=== PATIENT | male | born 1955 ===

== ENCOUNTER 2024-12-22 14:35 | Outpatient (CLI) | payer MEDICARE, MEDICAID, SELFPAY ==
--- NOTE | 2024-12-22 10:45 | DI.RAD_ITS ---
Exam(s) XR PELVIS AP EXAM: XR PELVIS AP CLINICAL HISTORY: THR planning. TECHNIQUE: 2D digital imaging was performed. Single AP view. COMPARISON: CR XR HIP LT LAT 1VW W/PELVIS from 10/06/2024 FINDINGS: BONES: No acute fracture is present. No bony destructive lesion is seen. JOINTS: No dislocation present. Stable appearance left hip prosthesis. Abny-rw-lqmiohiu right hip j oint space narrowing. Spurring from the acetabulum as well as margin of the right femoral head. SOFT TISSUE: Normal. Template ball. IMPRESSION: Moderate degenerative changes of the right hip. DATA REPOSITORY: RADIATION DOSE DELIVERED:
== END 2024-12-22 14:36 | disposition home or self-care (01) ==
LOC: DIORS 14:35
PROVIDERS: PCP Family Medicine; Referring Provider Family Medicine; Visit Provider Student in an Organized Health Care Education/Training Program
DX: M16.11 Unilateral primary osteoarthritis, right hip (principal); I25.2 Old myocardial infarction; I63.9 Cerebral infarction, unspecified
CPT/HCPCS: 99203; 72170

== ENCOUNTER 2025-05-01 00:38 | Outpatient (CLI) | payer MEDICARE, MEDICAID, SELFPAY ==
[2025-05-01 11:46] LABS: HCT 43.5 % (40.0-50.0); HGB 14.5 g/dL (13.5-17.5); MCH 31.9 pg (27.0-33.0); MCHC 33.3 % (32.0-36.0); MCV 96 fL (80-95); MPV 10.4 fL (8.0-11.0); Platelet Count 182 10^3/uL (130-400); RBC 4.55 10^6/uL (4.36-5.78); RDW 13.1 % (11.8-14.1); RDW-SD 46.5 fL
[2025-05-01 12:39] LABS: Anion Gap 5.3 mmol/L (3-11); BUN 19 mg/dL (7-18); CO2 31.7 mmol/L (21.0-32.0); CREATININE 1.2 mg/dL (0.70-1.30); Calcium 8.5 mg/dL (8.5-10.1); Chloride 105 mmol/L (98-107); Estimated GFR 65.46 (mL/min/1.73m2); Glucose 89 mg/dL (74-106); Potassium 4.6 mmol/L (3.5-5.1); Sodium 142 mmol/L (136-145)
== END 2025-05-01 00:39 | disposition home or self-care (01) ==
LOC: LBO 00:38
PROVIDERS: PCP Family Medicine; Visit Provider Student in an Organized Health Care Education/Training Program
DX: M16.11 Unilateral primary osteoarthritis, right hip (principal); Z01.818 Encounter for other preprocedural examination
CPT/HCPCS: 36415; 80048; 85027

== ENCOUNTER 2025-05-10 05:53 | Day surgery (SDC) | payer MEDICARE, MEDICAID, SELFPAY ==
[2025-05-10] VITALS (34 sets, daily range): BP systolic 111–169; BP diastolic 60–111; PULSE 50–95; RESP 9–24; TEMP 36.1–36.5; O2SAT 93–99; BMI 25.0
--- NOTE | 2025-05-10 06:46 | W.ANESPRE ---
General Info Date of Service Date Performed: 05/10/25 Height: 5 ft 11 in Weight: 81.193 kg Body Mass Index (BMI): 25.0 Surgical Procedure: Operation Date: 05/10/25 07:50 Proposed Procedure Side Surgeon p Hip Total Hip Anterior Right Bebeto Garza MD Meds Allergies and Home Medications Allergies Allergy/AdvReac Type Severity Reaction Status Date / Time Penicillins Allergy Anaphylaxis Verified 05/10/25 06:15 Home Medication ?Medication ?Instructions ?Recorded atorvastatin 80 mg tablet 80 mg PO HS 10/25/24 carvedilol 3.125 mg tablet 3.125 mg PO BID 10/25/24 lisinopril 10 mg tablet 10 mg PO DAILY 10/25/24 nitroglycerin 0.4 mg sublingual 0.4 mg sublingual Q5M PRN 10/25/24 tablet omeprazole 40 mg capsule,delayed 40 mg PO DAILY 10/25/24 release polyethylene glycol 3350 17 17 g PO DAILY 10/25/24 gram/dose oral powder (Miralax) trazodone 50 mg tablet 50 mg PO DAILY 10/25/24 acetaminophen 500 mg tablet 1,000 mg (2 x 500 mg) PO TID #90 05/10/25 tabs aspirin 81 mg tablet,delayed 81 mg PO BID #60 tabs 05/10/25 release dexamethasone 4 mg tablet 4 mg PO DAILY #2 tabs 05/10/25 docusate sodium 100 mg capsule 100 mg PO BID PRN #28 caps 05/10/25 meloxicam 15 mg tablet 15 mg PO DAILY #30 tabs 05/10/25 oxycodone 5 mg tablet 5 mg PO Q4H PRN pain #12 tabs 05/10/25 Current Visit Medications: Current Medications Generic Name Dose Route Start Last Admin Trade Name Freq PRN Reason Stop Dose Admin Acetaminophen 1,000 mg 05/10/25 06:00 Acetaminophen 500 Mg Tab PO 05/10/25 23:59 PREOP FRED Celecoxib 400 mg 05/10/25 06:00 Celecoxib 200 Mg Cap PO 05/10/25 23:59 PREOP FRED Ringer's Solution 1,000 mls @ 80 mls/hr 05/10/25 06:00 IV 05/10/25 23:59 INFUSION FRED Cefazolin Sodium/Dextrose 2 gm in 50 mls @ 100 mls/hr 05/10/25 06:00 Ancef Duplex IVPB 05/10/25 23:59 PREOP FRED Tranexamic Acid/Sodium Chloride 1,000 mg in 100 mls @ 600 mls/hr 05/10/25 06:00 IVPB 05/10/25 23:59 PREOP FRED IV Miscellaneous Supplies 1 each 05/10/25 06:00 Iv Access IV 05/10/25 23:59 DIRECTED FRED Sodium Chloride 0 ml 05/10/25 06:00 Normal Saline Flush 10 Ml Syr IV 05/10/25 23:59 PRN PRN Sodium Chloride 0 ml 05/10/25 06:00 Normal Saline 10 Ml Vial IJ 05/10/25 23:59 DIRECTED PRN Sterile Water 0 ml 05/10/25 06:00 Water,Injection,Sterile 10 Ml Vial IJ 05/10/25 23:59 DIRECTED PRN PFSH Active Problems Active Problems: Problem Status Onset Code Sleep apnea Acute G47.30 Carotid stenosis Acute I65.29 Osteoarthritis of right hip Chronic M16.11 Rosacea Acute L71.9 Recurrent major depression Acute F33.9 Restless leg syndrome Acute G25.81 Psoriasis Chronic L40.9 TOREY (obstructive sleep apnea) Chronic G47.33 Nicotine dependence Acute F17.200 Migraine with aura Acute G43.109 Hypertensive disorder Chronic I10 GERD (gastroesophageal reflux disease) Chronic K21.9 Fibromyalgia Acute M79.7 Deviated nasal septum Acute J34.2 CAD (coronary artery disease) Chronic I25.10 Chronic pain Chronic G89.29 CVA (cerebral vascular accident) Chronic I63.9 BPH (benign prostatic hyperplasia) Chronic N40.0 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 Medical History Medical History CVA (cerebral vascular accident) 11/07/23 History of trigger finger NSTEMI (non-ST elevated myocardial infarction) 02/06 stents Surgical History Surgical History Injury of right hand (~2023) Right little finger tendon injury 3 surgeries S/P lumbar fusion ~2000 [facility] Femoral hernia of right side S/P total left hip arthroplasty (10/04/19) H/O ventral hernia repair History of carpal tunnel release Bilateral continues to have numbness/tingling Tobacco Passive smoking exposure: No Alcohol Alcohol Intake: never Substance Use Substance use type: does not use Vital Signs and Lab Results Vital Signs Most Recent Vital Signs in EMR: Most Recent Vital Signs Temp Pulse Resp BP Pulse Ox 36.1 C L 63 16 125/86 98 05/10/25 06:05 05/10/25 06:05 05/10/25 06:05 05/10/25 06:05 05/10/25 06:05 Lab Results Complete Blood Count: WBC, (4.4-10.8) 7.00 10^3/uL 05/01/25, 11:39 RBC, (4.36-5.78) 4.55 10^6/uL 05/01/25, 11:39 Hgb, (13.5-17.5) 14.5 g/dL 05/01/25, 11:39 Hct, (40.0-50.0) 43.5 % 05/01/25, 11:39 Plt Count, (130-400) 182 10^3/uL 05/01/25, 11:39 Complete Metabolic Panel: Sodium, (136-145) 142 mmol/L 05/01/25, 11:39 Potassium, (3.5-5.1) 4.6 mmol/L 05/01/25, 11:39 Chloride, (98-107) 105 mmol/L 05/01/25, 11:39 Carbon Dioxide, (21.0-32.0) 31.7 mmol/L 05/01/25, 11:39 BUN, (7-18) 19 mg/dL H 05/01/25, 11:39 Creatinine, (0.70-1.30) 1.2 mg/dL 05/01/25, 11:39 Est GFR (CKD-EPI 2020), (mL/min/1.73m2) 65.46 05/01/25, 11:39 Calcium, (8.5-10.1) 8.5 mg/dL 05/01/25, 11:39 Glucose, (74-106) 89 mg/dL 05/01/25, 11:39 Anesthesia Assessment and Plan Anesthesia History Personal History: No History of Anesthesia Complications Family History: No Family History of Anesthesia Complications Exercise Tolerance Exercise Tolerance: Metabolic Equivalents<4 Pertinent Negatives Pertinent Negatives: No Symptoms of GERD and No Major Pulmonary Symptoms or Complaints Cardiac & Pulmonary Exam Cardiac Exam: Normal S1/S2 Heart Sounds Pulmonary Exam: Clear Bilateral Breath Sounds Implantable Cardiac Device Does patient have a Pacemaker or an ICD?: No Airway Exam Known Difficult Airway: No Mallampati Class: 2 Mouth Opening: Normal (> 3cm) Thyromental Distance: Greater than 3 cm Neck Range of Motion: Full ROM Neck Circumference: Normal Teeth Condition: Removable Dentures/Plates Upper and Removable Dentures/Plates Lower ASA Classification ASA Score: ASA 3 Emergency Case?: No NPO Status NPO Status: NPO Clears >2 hours, Solids >8 hours Anesthesia Plan Resuscitation Status: Full Code Anesthesia Technique: Spinal Anesthesia Airway Planned: Natural Airway Monitors Used: Standard Monitors
--- NOTE | 2025-05-10 07:12 | W.PM.DSUDISC ---
Date of service: 05/10/25 Discharge Plan Disposition Patient Disposition: Home Condition: Good Discharge Details Reason For Visit: R THR Attending Provider: Bebeto Garza Primary Care Provider: JANICE NICHOLSON Home Meds and New Rx's Prescriptions: New acetaminophen 500 mg tablet 1,000 mg PO TID Qty: 90 3RF aspirin 81 mg tablet,delayed release (DR/EC) 81 mg PO BID Qty: 60 0RF dexamethasone 4 mg tablet 4 mg PO DAILY Qty: 2 0RF docusate sodium 100 mg capsule 100 mg PO BID PRNQty: 28 0RF meloxicam 15 mg tablet 15 mg PO DAILY Qty: 30 2RF oxycodone 5 mg tablet 5 mg PO Q4H MDD 6 tabs PRN (Reason: pain) Qty: 12 0RF Continued atorvastatin 80 mg tablet 80 mg PO HS carvedilol 3.125 mg tablet 3.125 mg PO BID Rx Instructions: must administer with a meal/food lisinopril 10 mg tablet 10 mg PO DAILY polyethylene glycol 3350 [Miralax] 17 gram/dose powder 17 g PO DAILY nitroglycerin 0.4 mg tablet, sublingual 0.4 mg sublingual Q5M PRN Rx Instructions: do not exceed 3 doses per episode omeprazole 40 mg capsule,delayed release(DR/EC) 40 mg PO DAILY trazodone 50 mg tablet 50 mg PO DAILY Discontinued aspirin [Adult Low Dose Aspirin] 81 mg tablet,delayed release (DR/EC) 81 mg PO DAILY hydrocodone-acetaminophen 5-325 mg tablet 1 tab PO Q6H PRN acetaminophen 500 mg capsule 500 mg PO Q6H PRN Discharge Instructions Additional Instructions: Total Hip Discharge Instructions Activity: The most important activity is to walk. You should try to take short walks a few times a day. You have no restrictions on movement or positioning, but do not try to force what you do. You will find some stiffness and weakness with hip flexion (lifting your knee). Do not try to strengthen this too early, continue to practice walking and stairs and this will come. - Outpatient physical therapy can be helpful to help return you to a normal gait and improve your flexibility and strength. This can start around 2 weeks. For some patients, it?s not necessary. Usually this is determined at the time of discharge or at the first post-operative visit. - You should wear the PAMELA hose on both legs for 2 weeks. Dressing: Keep the surgical dressing in place for at least one week. After the first week it may be removed and replace with light gauze and tape or nothing. It may get wet after 3 days but avoid soaking the dressing. If it gets wet, just lightly pat dry. It is important to always keep some gauze between skin folds, especially when you are sitting. Spend some time with the wound exposed when you are lying flat as the incision does wrinkle onto itself. Medications: - You should take Tylenol and an anti-inflammatory meloxicam as your primary pain control medications. - You have been prescribed a stronger pain medication Oxycodone for breakthrough pain, take as needed as prescribed. - You will continue your stomach acid reduction agent omeprazole to help reduce stomach acid and reflux. - You have also been prescribed Decadron to help with post-operative nausea and pain. You will take this for two days starting tomorrow. - You will be taking Aspirin 81mg twice a day for DVT prevention unless instructed otherwise. - If you have constipation you should take Colace or Miralax (both lrou-qjr-cqzptey). It takes most people 3-4 days to have a bowel movement. Follow-up: 2 weeks If you have any acute concerns or questions, please do not hesitate to contact the office at [phone]. You may contact Dr. Garza with any questions after hours through the hospital at [phone] or on his cell phone at [phone]. Referrals: Bebeto Garza MD [ [facility] STAFF PHYSICIAN, Orthopaedic Surgical] Equipment/Supplies: Walker Activity:: Activity as Tolerated Shower/Bathe:: 72 hours Diet:: As Tolerated Discharge Orders Discharge Orders: Discharge Order (Routine); Ordered 05/10/25 Ordered By: Justin Carney DS: Diagnosis Discharge Diagnosis (1) Osteoarthritis of right hip: Status: Chronic
[2025-05-10] MEDS: Celecoxib 200 MG CAP 400 MG PO (07:19)
[2025-05-10] MEDS: Acetaminophen 500 MG TAB 1000 MG PO ×2 (07:21→13:09)
[2025-05-10] MEDS: Lactated Ringers 1,000 ML 80 ML IV (07:30)
--- NOTE | 2025-05-10 07:47 | W.PM.OP ---
Operative Note Operative Note PRE-OP DIAGNOSIS: Right Hip Osteoarthritis POST-OP DIAGNOSIS: same PROCEDURE: Right Anterior Total Hip Arthroplasty with Intraoperative Navigation SURGEON: Bebeto Garza HEALTH CARE MARKETING MANAGER: Justin Carney ANESTHESIA TYPE: Spinal Refer to Anesthesia Record ESTIMATED BLOOD LOSS: 150 PATHOLOGY: none sent TOURNIQUET TIME: 0 COMPLICATIONS: None Patient was transported to: PACU Patient's condition: stable Implants: 1. Depuy [place] Acetabular Component, 60mm 2. Depuy Acetabular Liner, [id number] 3. Depuy Actis High Offset Collared Femoral Stem, Size 8 4. Depuy Altrx Ceramic Femoral Head, Size 36+1.5mm Indications: I have seen Last in clinic for symptoms of hip arthritis, confirmed with radiographic findings. He has exhausted nonoperative methods and was having significant limitations in daily function and desired better function and less pain. I discussed the technical details of a hip replacement. I explained the risks of the procedure to include, but not limited to, bleeding, infection, pain, stiffness, fracture, damage to nerves and vessels, damage to muscles and tendons, loosening, instability, leg length inequality, need for repeat procedure, blood clot and cardiopulmonary demise. Despite these risks, Last elected to proceed. Findings: There was significant signs of arthritis throughout the hip. Procedure Description: Last was greeted in the preoperative holding area where the correct side was identified and marked. The consent was reviewed with the patient and signed. The history and physical was updated. All questions were answered. He was taken back to the operating room. A spinal anesthestic was then attempted but unsuccessful and thus he was converted to a general anesthetic. The feet were wrapped with cast padding and Coban and then placed into the boot liners and then into the boots. Care was taken to protect the skin and make sure the heels were fully down and the boots were stable. The patient was then positioned onto the HANA table. Both legs were held in a neutral position. SCDs were applied. The patient was then slid down onto a peroneal post. Prophylactic antibiotics in the form of Cefazolin were administered. 1g of Tranxemic Acid was given intravenously within 30 minutes of incision. The right leg was then prepped with Chloraprep and draped in a standard fashion. A second prep with Chloraprep was performed prior to placement of a shower-curtain type drape with Iodine impregnated skin protection. A timeout to confirm correct identity, side and site, procedure, allergies, anesthesia, and medical concerns was performed. An obliquely oriented incision was made starting lateral to the ASIS and running distal over the Tensor Fascia Nely (TFL) muscle belly toward the fibular head, approximately 10cm. The skin and soft tissue was dissected sharply, through Debbie?s fascia, and to the fascia of the TFL. With the fascia and superior border of the IT band identified, the fascia was incised with a new knife just above any perforators from the IT band. The TFL muscle belly was bluntly dissected away from the fascia and moved laterally. The fat between TFL and rectus was identified to ensure the dissection was not within the TFL. Blunt dissection created space between abductors and the capsule and retractor was placed over the lateral femoral neck. The fibers of the rectus femoris tendon were identified and these were freed from the anterior capsule. A second cobra retractor was placed around the medial femoral neck. The TFL was further retracted laterally to show the deep fascia. Careful dissection through this layer identified three main crossing vessels of the lateral femoral circumflex. These were cauterized in multiple locations and then cut without any noticeable bleeding. The TFL was further released bluntly from the deep fascia to expose anterior hip capsule and fat The soft tissue orthopaedic retractor was then placed beneath the TFL and against sartorius and medial soft tissues to protect and retract the soft tissues. A T-capsulotomy was then performed starting at the superior lateral acetabulum and moving distally to the intertrochanteric ridge. These capsular flaps were tagged with a No. 1 Vicryl and elevated from within. The capsular flaps were released to the shoulder of the lateral neck and to the lesser trochanter to give excellent visualization of the proximal femur. A neck osteotomy was performed using an oscillating saw based on preoperative templates. This cut started in the shoulder and of the lateral neck and exited medially. The saw was at all times directed medially to avoid injury to the greater trochanter. Gross traction was applied to the leg and the osteotomy opened. The femoral head was removed with a corkscrew, making sure to protect the TFL on its exit. Traction was released after head removal. This was measured on the back table to determine the starting reamer size. Portions of the rectus obscuring visualization were minimally elevated off the superior acetabulum. An anterior retractor was placed over the anterior wall between capsule and labrum and attached to the Gripper retraction system. The femur was rotated to 90 degrees and medial capsule was fully released until the lesser trochanter was palpable and visible; the femur was returned to 30 degrees. A posterior retractor was placed similarly between capsule and labrum. This provided excellent visualization. The contents of the cotyloid fossa were removed with electrocautery and the labrum was removed with a knife. There was a notable floor osteophyte. There was significant chondromalacia of the superior acetabulum. Acetabular reaming began with a 55mm reamer. This first reaming was directed anterior to posterior and medial to get down to the true floor. This was inspected and reamed until the true floor was reached. The anterior retractor was then released and entry and exit was provided by traction on the capsular flaps. I then reamed sequentially up to a 60mm reamer where good fit was obtained. The larger reamers were oriented based on anatomical reference of the anterior and lateral hill to ensure proper abduction and anteversion. Positioning and size was confirmed with the fluoroscopy. A 60mm Depuy [place] acetabular component was selected. The acetabulum was reamed around the periphery with the selected acetabular size to prevent a rim fit. The deep tissues were irrigated. The acetabular component was then impacted in a position of about 40-45 degrees of abduction and 15-20 degrees of anteversion, using the patient?s anatomy as the ultimate landmark. Fluoroscopy was used to confirm this. There was excellent linux devops engineer of the acetabular component and the inserting handle was removed. The acetabular liner, Depuy [id number] polyethylene liner, was inserted and lined up with the tines of the acetabular component. There was no soft tissue interposition. The liner was then impacted into position and confirmed to be well-seated. A portion of the sri-articular cocktail was then injected around the acetabulum into the capsule and periosteum. This cocktail consisted of 123mg of Ropivacaine, 0.25mg of Epinephrine, 0.04mg of Clonidine, and 15mg of Ketorolac, diluted to 50cc. The leg was rotated to 120 degrees. Any remaining medial capsule was released until the lesser trochanter was easily palpable. A retractor was placed medially. The lateral capsule was further released into the shoulder to allow access to the greater trochanter. A Escobar retractor was placed over the greater trochanter which allowed the trochanter to flip in front of the capsule for excellent exposure. The leg was brought down into maximal extension and 20 degrees of adduction while ensuring there was no impingement on the acetabulum. Any remnant capsule within the trochanter was released. Piriformis and obturator externis were identified and protected. There was excellent access to the proximal femur. The lateral neck remnant was removed with a rongeur. A blunt canal probe was used to identify the canal and trajectory for later broaching. A box osteotome initiated the broach course. A small curved rasp and a curved curette were used to work laterally. Broaching then began with a starter Actis broach. This was inserted manually around the trochanter and into the canal before mallet blows. The broach was seated to a few millimeters below the cut level based on the neck cut and the preoperative template. Sequential broaching was continued with the Pact Fitnessse pneumatic broaching device until a tight fit was obtained with good rotational control of the femur. A trial standard neck was inserted along with a +1.5 trial head. The leg was brought out of extension and adduction and then reduced with traction and internal rotation. The leg was stable anteriorly in a position of 30 degrees of extension and 90 degrees of external rotation. Fluoroscopy was used to ensure there was no fracture and the stem was seated well. Leg lengths were checked with an AP pelvis and pelvic reference points. Worksurfers navigation system was used to confirm appropriate positioning and leg length and offset. This corrected the leg length but undercorrected the offset and thus a high offset neck was chosen. Once content with the desired offset and leg lengths, the leg was brought back into extension, external rotation and adduction. The periosteum and surrounding tissue was injected with remaining portion of the sri-articular cocktail. The proximal femur was irrigated as well as the deep tissues. The Wanderlustuy Actis High Offset collared stem, size 8, was then manually inserted into the proximal femur making sure to control rotation. It was then malleted into position with light blows, giving breaks to allow bone expansion and decrease risk of fracture. The selected Depuy Altrx Ceramic Head, size 36+1.5mm, was then placed onto the clean and dry trunnion and secured with impaction onto the tapered fit. The leg was brought back out of extension and adduction and reduced with traction and internal rotation. Stability was confirmed with no shuck at 90 degrees of external rotation and 30 degrees of extension. No impingement through range of motion arc. Final x-ray images were obtained with fluoroscopy to confirm adequate positioning and no intraoperative fracture. The deep tissues were thoroughly irrigated with Surgiphor, betadine solution. This was allowed to sit in the wound for 3 minutes before being thoroughly irrigated out with normal saline. The capsule was then reapproximated with the previously placed sutures and the indirect head of the rectus was inspected and reapproximated with a #1 Vicryl. The TFL fascia was finally closed with a No. 2 Stratafix, barbed suture. Deep tissues were then reapproximated with 0 Vicryl and a running 2-0 Vicryl. The skin was closed with a running 4-0 Monocryl in a subcuticular fashion. This was reinforced with skin glue. A Mepilex silver dressing was applied. At the end of the case, all counts were correct. Last was transferred to the hospital bed without difficulty and suffering no apparent complication. He has a good prognosis. Physical therapy will start today and without restrictions, weight-bearing as tolerated. Aspirin 81mg BID will be used for DVT prophylaxis. Date of Procedure: 05/10/25
[2025-05-10] MEDS: ceFAZolin 2 GM/50 ML BAG IVPB (08:10)
[2025-05-10] MEDS: TRANEXAMIC ACID/SOD. CHL. 1,000 MG/100 ML BAG 600 MG IVPB (08:13)
--- NOTE | 2025-05-10 09:15 | DI.RAD_ITS ---
Exam(s) XR HIP RT IN OR EXAM: XR HIP RT IN OR CLINICAL HISTORY: Osteoarthritis of right hip. TECHNIQUE: 2D and realtime digital imaging was performed. COMPARISON: CR XR PELVIS AP from 12/22/2024 FINDINGS: Hard copy images show placement of a right hip prosthesis. The alignment appears satisfactory. Please see procedure note for details. Fluoro time: 31.3seconds RADIATION DOSE DELIVERED: Ka,r=3.4 mGy
[2025-05-10] MEDS: HYDROmorphone 2 MG/ML SYR IVP ×2 (10:18→10:28)
--- NOTE | 2025-05-10 11:23 | W.ANESPOSTOP ---
Postoperative Evaluation Date, Time and Location Date Performed: 05/10/25 Time Performed: 11:23 Patient Location: Day Surgery Unit Vital Signs Most Recent Imported Vital Signs: Most Recent Vital Signs Temp Pulse Resp BP Pulse Ox 36.4 C L 59 L 13 157/86 H 99 05/10/25 10:45 05/10/25 10:45 05/10/25 10:45 05/10/25 10:45 05/10/25 10:45 Pain Score Most Recent Pain Score: Most Recent Pain Score Pain Level 6 05/10/25 10:50 Assessment Mental Status: Awake (Alert & Oriented to Patient Baseline) Airway and Respiratory Function: Patent airway with normal (patient baseline) respiratory exam Cardiovascular Function: Hemodynamically Stable Hydration Status: Adequately Hydrated Nausea & Vomiting: No Nausea or Vomiting Pain: Pain is tolerable per patient (Reports 4/10 now) Peripheral Nerve Block: Patient did not receive a nerve block
[2025-05-10] MEDS: oxyCODONE 5 MG TAB PO (11:37)
--- NOTE | 2025-05-10 13:01 | IN_ITS ---
PT Notes Visit Reasons: R THR Physical Therapy Day Surgery Initial Evaluation Date: 05/10/2025 Referring Doctor: REMY Tam/Dr. Garza PT Orders: PT CONSULT: Status post Ortho surgery PT evaluation Precautions: WBAT RLE Patient Profile/Admitting Diagnosis: Pepito Ni is a 70-year-old man presenting status post elective right MIO secondary to DJD on 05/10/2025. 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 Patient independent without assistive device for ambulation, independent ADLs, independent shopping, independent driving, independent finances and meal prep. Equipment Owned/DME: FWW, ramp, grab bars in bathroom, tub seat Subjective: [] Objective: [] General Observation: [] Mental Status: Alert and oriented x 4, cooperative, motivated, able to follow instructions Pain: Right hip 2?3/10 after ambulation ROM: [] Right Upper Extremity: WNL Left Upper Extremity: WNL Right Lower Extremity: Hip flexion approximately 95 degrees, abduction 15 degrees, internal rotation to neutral, knee and ankle within normal limits Left Lower Extremity: WNL Strength: [] BUE: 5/5 Right Lower Extremity: Hip 3 -/5 knee 3/5 ankle 3/5 Left Lower Extremity: 5/5 Sensation: Intact to light touch and pain proprioception and kinesthetic awareness intact Bed Mobility/Transfers: [] Supine to sit independent Sit to stand independent Stand to sit standby assist with cues for hand placement Bed to chair supervision with FWW Gait: Ambulate 150 feet with FWW reciprocal pattern with slow edwina reduced step length supervision Stairs: 5 steps with bilateral rails SBA step to pattern cues for sequencing Balance: [] Static Sitting: Normal Dynamic Sitting: Good Static Standing: Good Dynamic Standing: Fair plus Special Tests: [] Mobility Limitations Standardized Measure [] [employer] AM-PAC 6 clicks Basic Mobility Inpatient Short Form: [] Raw Score: 23 CMS Score: 11.20% Informed Consent/Education: Patient instructed in purpose of PT consult. Packet containing MIO exercise protocol has been given to patient. Education and training on initial set of exercises that can be done at home have been completed with patient. Treatment: [id number]: Transfers with FWW from various surfaces and heights from 18 inches to 23 inches with supervision initially with cues for hand placements to reach back prior to sitting by end of session patient able to carryover proper hand placement. Simulated car transfer utilizing technique of lowering backrest to allow for leg clearance past door frame. Assessment: Patient is a 70-year-old male who presents with clinical signs and symptoms consistent with current/admitting diagnoses that have resulted to mobility limitations, gait instability, generalized weakness, and impairment of motor control as demonstrated by the following impairment level findings: 1. Decreased strength to right hip major muscle groups 2. Impaired standing balance 3. Limitation of joint range of motion in right hip 4. Impaired functional activity tolerance Impairments are contributing to the following functional limitations: 1. Inability to safely ambulate without assistive device 2. Increase completion time for mobility ADL performance 3. Increased fall risk 4. Difficulty performing stairs without assistive device Patient is assessed as a low complexity based on the following: History: 70-year-old male with impairment level findings, functional li mitations, and past medical history as indicated above Examination: Demonstrable impairment in strength, balance, and mobility level with underlying impairments and functional limitations as documented above Presentation: Stable/evolving Decision Making: Low Goals: N/A. PT evaluation and 1-2 treatment sessions only for functional mobility training using recommended AD and for HEP instruction. Plan of Care/Treatment Plan: N/A. PT evaluation and 1-2 treatment session only for functional mobility training using recommended AD and for HEP instruction. DISCHARGE RECOMMENDATIONS: Home with home exercise program TREATMENT CODE/TIME:[id number], [id number] Thank you for the opportunity to participate in the care of this patient. Cheryl Hodges, PT [facility]
== END 2025-05-10 13:45 | disposition home or self-care (01) ==
PROVIDERS: PCP Family Medicine; Visit Provider Student in an Organized Health Care Education/Training Program
PROC: (CPT 27130; principal; 2025-05-10 07:30)
DX: M16.11 Unilateral primary osteoarthritis, right hip (principal)
CPT/HCPCS: 20985; 27130; 97161; 97530; 73501; C1776; J0690; J1100; J1171; J2003; J2250; J2401; J2405; J2704

== ENCOUNTER 2025-05-25 10:30 | Outpatient (CLI) | payer MEDICARE, MEDICAID, SELFPAY ==
--- NOTE | 2025-05-25 09:45 | DI.RAD_ITS ---
Exam(s) XR HIP RT COMPLETE AP PELVIS EXAM: XR HIP RT COMPLETE AP PELVIS CLINICAL HISTORY: F/U RIGHT MIO. TECHNIQUE: 2D digital imaging was performed. COMPARISON: CR XR PELVIS AP from 12/22/2024 XA XR HIP RT IN OR from 05/10/2025 FINDINGS: Two views There is satisfactory position alignment of the components of the recently placed right hip prosthesis (05/10/2025). No fracture or loosening evident. The opposite-left hip prosthesis also remains stable-satisfactory. IMPRESSION: Stable satisfactory appearance. DATA REPOSITORY: RADIATION DOSE DELIVERED:
== END 2025-05-25 10:31 | disposition home or self-care (01) ==
LOC: DIORS 10:31
PROVIDERS: PCP Family Medicine; Referring Provider Family Medicine; Visit Provider Physician Assistant
DX: Z47.1 Aftercare following joint replacement surgery (principal); Z96.641 Presence of right artificial hip joint
CPT/HCPCS: 99024; 73502

== ENCOUNTER 2025-06-22 10:42 | Outpatient (CLI) | payer MEDICARE, MEDICAID, SELFPAY ==
--- NOTE | 2025-06-22 09:30 | DI.RAD_ITS ---
Exam(s) XR KNEE RT 3V AP,LAT,JAELYN EXAM: XR KNEE RT 3V AP,LAT,JAELYN CLINICAL HISTORY: eval R knee pain. TECHNIQUE: 2D digital imaging was performed of the right knee. Three views obtained. AP, lateral and PA tunnel views were obtained. COMPARISON: There are no priors for comparison. FINDINGS: BONES: No acute fracture is present. No bony destructive lesion is seen. JOINTS: The knee is normally aligned. There is no significant joint effusion. SOFT TISSUE: Normal. IMPRESSION: No acute abnormality. DATA REPOSITORY: RADIATION DOSE DELIVERED:
--- NOTE | 2025-06-22 09:30 | DI.RAD_ITS ---
Exam(s) XR LUMBAR SPINE COMPLETE EXAM: XR LUMBAR SPINE COMPLETE CLINICAL HISTORY: eval lumbar pain and right radiculopathy. TECHNIQUE: 2D digital imaging was performed of the lumbar spine. Five images were obtained. AP, lateral, right oblique, left oblique and L5-S1 spot views were obtained. COMPARISON: No exams were available for comparison FINDINGS: BONES: No fracture or destructive lesion. There are endplate osteophytes present throughout the lumbar spine. No facet hypertrophy identified. There is posterior spinal surgery from L3 through S1 with pedicle screws at L3, L4 and S1 and posterior spinal rods spanning the length. DISKS: Intervertebral disc spaces are maintained. ALIGNMENT: Lumbar spinal alignment is within normal limits. There is grade 1 spondylolisthesis of L5 on S1. SOFT TISSUE: Normal. IMPRESSION: 1. Degenerative changes seen throughout the lumbar spine. 2. Grade 1 spondylolisthesis of L5 on S1. 3. Postsurgical changes of posterior spinal surgery from L3 through S1. DATA REPOSITORY: RADIATION DOSE DELIVERED:
== END 2025-06-22 10:43 | disposition home or self-care (01) ==
LOC: DIORS 10:42
PROVIDERS: PCP Family Medicine; Referring Provider Family Medicine; Visit Provider Student in an Organized Health Care Education/Training Program
DX: M54.16 Radiculopathy, lumbar region (principal); Z47.1 Aftercare following joint replacement surgery; Z96.641 Presence of right artificial hip joint; M25.561 Pain in right knee; R20.0 Anesthesia of skin; R20.2 Paresthesia of skin
CPT/HCPCS: 99213; 73562; 72110

== ENCOUNTER → 2025-08-03 08:33 | Outpatient (BNVA) | payer MEDICARE, MEDICAID, SELFPAY | PROVIDERS: PCP Family Medicine; Referring Provider Family Medicine; Visit Provider Physician Assistant | DX: Z47.1 Aftercare following joint replacement surgery (principal); Z96.641 Presence of right artificial hip joint | CPT/HCPCS: 99024 ==